=== PATIENT | female | born 1945 | race Caucasian/White ===

== ENCOUNTER → 2019-10-19 14:21 | Outpatient (CLI) | payer OTHER | END | disposition home or self-care (01) | LOC: LAB 14:21 | DX: E78.49 Other hyperlipidemia (principal); I11.9 Hypertensive heart disease without heart failure; E03.8 Other specified hypothyroidism; Z12.11 Encounter for screening for malignant neoplasm of colon; C50.012 Malignant neoplasm of nipple and areola, left female breast; N63.23 Unspecified lump in the left breast, lower outer quadrant; N63.24 Unspecified lump in the left breast, lower inner quadrant; N64.4 Mastodynia ==

== ENCOUNTER 2019-10-20 13:55 | Outpatient (CLI) | payer OTHER | END 2019-10-20 14:02 | disposition home or self-care (01) | LOC: LAB 13:55 | DX: E11.9 Type 2 diabetes mellitus without complications (principal); I10 Essential (primary) hypertension; E78.49 Other hyperlipidemia; E03.8 Other specified hypothyroidism; Z12.11 Encounter for screening for malignant neoplasm of colon ==

== ENCOUNTER 2019-10-25 10:43 | Outpatient (CLI) | payer OTHER | END 2019-10-25 10:52 | disposition home or self-care (01) | LOC: SONOGRAMA 10:43 | DX: C50.012 Malignant neoplasm of nipple and areola, left female breast (principal); N63.23 Unspecified lump in the left breast, lower outer quadrant; N63.24 Unspecified lump in the left breast, lower inner quadrant; N64.4 Mastodynia ==

== ENCOUNTER 2019-11-02 13:07 | Outpatient (CLI) | payer OTHER | END 2019-11-02 13:12 | disposition home or self-care (01) | LOC: LAB 13:07 | DX: R97.8 Other abnormal tumor markers (principal); I10 Essential (primary) hypertension; E55.9 Vitamin D deficiency, unspecified; C50.112 Malignant neoplasm of central portion of left female breast ==

== ENCOUNTER 2019-11-09 09:05 | Outpatient (CLI) | payer OTHER | END 2019-11-09 09:06 | disposition home or self-care (01) | LOC: NUCLEAR 09:05 | DX: C50.112 Malignant neoplasm of central portion of left female breast (principal); R97.8 Other abnormal tumor markers | CPT/HCPCS: 78315; 78803; A9503 ==